=== PATIENT | female | born 1980 | race Caucasian/White ===

== ENCOUNTER → 2018-12-18 | Outpatient (CLI) | payer OTHER | LOC: M.RAD 09:19 | DX: Z12.31 Encounter for screening mammogram for malignant neoplasm of breast (principal) ==

== ENCOUNTER → 2018-12-29 | Outpatient (CLI) | payer OTHER | LOC: M.ULTRA 13:00 | DX: R92.2 Inconclusive mammogram (principal) ==

== ENCOUNTER → 2020-09-26 | Outpatient (CLI) | payer OTHER | LOC: M.RAD 09-19 13:00 | PROVIDERS: ATTEND Family Medicine Sports Medicine | DX: Z12.31 Encounter for screening mammogram for malignant neoplasm of breast (principal) ==